=== PATIENT | male | born 1980 | race African-American/Black ===

== ENCOUNTER 2018-05-13 07:35 | Emergency (ER) | payer MEDICAID ==
[~2018-05-13] VITALS: Ht 182.9 cm; Wt 93.4 kg
[2018-05-13 07:50] VITALS: BP 138/69
== END 2018-05-13 08:37 | disposition home or self-care (01) ==
LOC: ER 07:35
DX: S93.492A Sprain of other ligament of left ankle, initial encounter (principal); F17.210 Nicotine dependence, cigarettes, uncomplicated; X50.1XXA Overexertion from prolonged static or awkward postures, initial encounter; Y93.39 Activity, other involving climbing, rappelling and jumping off; Y99.8 Other external cause status; Y92.89 Other specified places as the place of occurrence of the external cause
CPT/HCPCS: 73610